=== PATIENT | female | born 1935 | race Caucasian/White ===

== ENCOUNTER → 2017-04-14 | Day surgery (SDC) | payer MEDICARE, MEDICAID ==
[~2017-04-14] VITALS: Ht 167.6 cm; Wt 102.5 kg
[~2017-04-14] MED LIST: /ESOM40CA; /GLYB5TA; /MOXI40TA; /ZOLP6ER; ASPI81CH32 PO; ATOR1TAB21 PO; BACITRACIN OINT 30GM As Ordered ONE; CALCTAB22; DARV100T10; FURO20TA2 PO; GLUC500T; GUAIFENESIN; HYDR25TA6; INSULANT SC; LANTINJ4 SC; LIDOCAINE 2% INJ 100 MG/5 ML SDV (FOR ANES.) As Ordered ONE; LIDOCAINE W/EPINEPHRINE 1% 20ML VIAL As Ordered ONE; LISI20TA5; LOSA25TA8 PO; LR 1,000 ML IV ONE; METO-346 PO; METOPROLOL TART 25 MG TABLET PO ONE; MIDAZOLAM INJ 2 MG/2 ML VIAL (J2250) As Ordered ONE; MULTCAP8 PO; ONDANSETRON 4MG/2ML VIAL (J2405) As Ordered ONE; PANT40TA2 PO; PAXI20TA; POTA1TAB23 PO; PROPOFOL 200 MG/20 ML VIAL As Ordered ONE; SARNA; SIMV80TA; SPIR25TA2 PO; SYMB16INH INH; THERGRAN; VITA100072 PO; VITA500T PO; VITAMIN B COMPLE1; VITATAB11 PO; WARF-23 PO; [UNRECOGNIZED DRUG - OTHER]; dexameTHASONE 4 MG/ML 1ML VIAL (J1100) As Ordered ONE; fentaNYL 100 MCG/2 ML INJECTION (J3010) As Ordered ONE
[2017-04-14 10:04] VITALS: BP 145/68
[2017-04-14 13:30] VITALS: BP 146/65
--- NOTE | 2017-04-16 00:50 | ECGEPIP ---
Stationary ECG Study [facility] Test Date: 2017-04-14 Pat Name: IBRAHIMA CUNNINGHAM Department: Room: - Gender: F [employer]: : [id number] Requested By: SAVANNA Jackson Order Number: [id number] Reading MD: Freddie Rowe Measurements Intervals [place] Rate: 53 P: 64 [place]: 172 QRS: -7 QRSD: 99 T: 64 QT: 428 QTc: 404 Interpretive Statements SINUS BRADYCARDIA WITH SINUS ARRHYTHMIA LEFT VENTRICULAR HYPERTROPHY AND ST-T CHANGE No prior tracing in the system Electronically Signed On 04-16-2017 0:49:44 EDT by Freddie Rowe
--- NOTE | 2017-05-07 09:55 | RO ---
DATE OF PROCEDURE: 04/14/2017 PREOPERATIVE DIAGNOSIS: Subcutaneous lesion of the left upper lateral nasal wall. POSTOPERATIVE DIAGNOSIS: Subcutaneous lesion of the left upper lateral nasal wall. PROCEDURE PERFORMED: Excision of the left upper lateral nasal wall subcutaneous lesion and two layer closure of the incision. SURGEON: Eric Patterson MD DIGITAL SALES REPRESENTATIVE: ANESTHESIA: Local sedation. CLINICAL PREAMBLE: This 81-year-old woman has had a cutaneous lesion excised from the left lateral nasal wall with the possibility of squamous cell carcinoma and uncertain skin margin. Physical examination revealed a healed area over the left lateral nasal wall with a rough skin texture. Management options including excision of the left lateral nasal wall lesion with two layer closure have been discussed. The patient understood and consented to the procedure. DESCRIPTION OF PROCEDURE: Patient was identified in the preoperative holding area and had the left nose marked. She was brought to the operating room in stable condition. She was placed in supine position on the operating table. She received local sedation followed by supplemental oxygen delivery via the nasal prongs. The patient was prepped and draped in the usual fashion for the procedure. The left nasal wall lesion was outlined and infiltrated with 1% lidocaine with 1:100,000 epinephrine. The lesion measured 0.5 cm in its greatest dimension. Excision was then performed. The specimen was labeled indicating 6 o'clock with two suture end and 9 o'clock with one suture in. Hemostasis was achieved. Two layer closure was achieved. Bacitracin was applied over the surgical site. At the end of the procedure, sponge and instrument counts were correct. No complications were noted. Estimated blood loss was less than 1 mL. Local sedation was reverse and the patient was awakened and taken to the recovery room in stable condition.
== END | disposition home or self-care (01) ==
LOC: M SDC 08:27
PROVIDERS: ATTEND Otolaryngology
DX: D04.39 Carcinoma in situ of skin of other parts of face (principal); I25.10 Atherosclerotic heart disease of native coronary artery without angina pectoris; E11.9 Type 2 diabetes mellitus without complications; E03.9 Hypothyroidism, unspecified; I50.9 Heart failure, unspecified; K21.9 Gastro-esophageal reflux disease without esophagitis; D64.9 Anemia, unspecified; J44.9 Chronic obstructive pulmonary disease, unspecified; Z79.01 Long term (current) use of anticoagulants; Z79.4 Long term (current) use of insulin; Z79.82 Long term (current) use of aspirin; Z79.899 Other long term (current) drug therapy
CPT/HCPCS: 11641; 88305; 93005; J1100; J2250; J2405; J3010